=== PATIENT | male | born 1950 | race Hispanic/Latino ===

== ENCOUNTER 2019-07-12 06:00 | Day surgery (SDC) | payer OTHER ==
[2019-07-07 12:05] VITALS: BP 153/69
[2019-07-07 12:21] LABS: BASOPHILS % (AUTO) 1.3 % (0.0-5.0); EOSINOPHILS % (AUTO) 2.3 % (0.0-8.0); HEMATOCRIT 35.5 % (42-54); LYMPHOCYTES % (AUTO) 27.2 % (21.0-51.0); MEAN CORPUSCULAR HEMOGLOBIN 31.4 pg (27.0-33.0); MEAN CORPUSCULAR HGB CONC 32.1 g/dL (32.0-36.0); MEAN CORPUSCULAR VOLUME 97.8 fL (79-99); MONOCYTES % (AUTO) 6.1 % (3.0-13.0); NEUTROPHILS % (AUTO) 62.7 % (40.0-77.0); PLATELET COUNT (AUTO) 137 K/uL (130-400); RED BLOOD CELL COUNT(AUTO) 3.63 MIL/uL (4.50-6.20); RED CELL DISTRIBUTION WIDTH 14.1 % (11.0-15.5); WHITE BLOOD COUNT (AUTO) 6.9 K/uL (4.8-10.8)
[2019-07-07 12:35] LABS: CREATININE 5.1 mg/dL (0.5-1.5); POTASSIUM 4.4 mmol/L (3.5-5.1)
[2019-07-07 12:38] LABS: INR 0.92 (0.85-1.15); PARTIAL THROMBOPLASTIN TIME 24.5 SEC (26.3-35.5); PROTHROMBIN TIME 9.7 SEC (9.6-11.6)
--- NOTE | 2019-07-11 14:24 | NUR ---
LABS ABNORMAL LABS AND CHEST XRAY REPORTED TO Jaspal VOSS, NO FURTHER ORDERS GIVEN. OK TO PROCEED WITH PLANNED PROCEDURE
[~2019-07-12] VITALS: Ht 172.7 cm; Wt 99.9 kg
[2019-07-12] VITALS (12 sets, daily range): BP systolic 127–153; BP diastolic 42–77
[~2019-07-12 06:00] MED LIST: SODIUM CHLORIDE 0.9% 500ML 500 ML IV SCH
[2019-07-12] MEDS ORDERED: SODIUM CHLORIDE 0.9% 1000ML 1,000 ML IV ONE (06:13)
--- NOTE | 2019-07-12 06:15 | NUR ---
PATIENT ARRIVED TO DAY PATIENT ACCOMPANIED BY SPOUSE (YOVANA). PATIENT AAOX3, RESPIRATIONS UNLABORED, VITAL SIGNS STABLE. PATIENT DENIES ANY PAIN AT THIS TIME. PROCEDURE VERIFIED WITH PATIENT AND HOSPITAL ROUTINE EXPLAINED TO PATIENT/SPOUSE, BOTH VERBALIZED UNDERSTANDING.
[2019-07-12] MEDS ORDERED: ATOR10 PO (06:59)
[2019-07-12] MEDS ORDERED: INSU100V12 SQ (06:59)
[2019-07-12] MEDS ORDERED: VITAMIN D3 PO (06:59)
[2019-07-12] MEDS ORDERED: ROPI0.257 PO (06:59)
[2019-07-12] MEDS ORDERED: PANT40TA25 PO (06:59)
[2019-07-12] MEDS ORDERED: SEVE800T7 PO (06:59)
[2019-07-12] MEDS ORDERED: TORS20TA4 PO (06:59)
[2019-07-12] MEDS ORDERED: CYAN500T63 PO (06:59)
[2019-07-12] MEDS ORDERED: FOLI1TAB61 PO (06:59)
[2019-07-12] MEDS ORDERED: BIVALIRUDIN 250 MG/VIAL IV ONE (07:10)
[2019-07-12] MEDS ORDERED: NITROGLYCERIN 5 MG/ML 10 ML VIAL IV ONE (07:10)
[2019-07-12] MEDS ORDERED: IOHEXOL-350 50ML VIAL IV ONE (07:11)
[2019-07-12] MEDS ORDERED: MIDAZOLAM HCL 1 MG/ML 2ML VIAL ONE (07:11)
[2019-07-12] MEDS ORDERED: LIDOCAINE HCL 2% 20ML ONE (07:11)
[2019-07-12] MEDS ORDERED: FENTANYL CITRATE PF 50 MCG/1 ML 2ML VIAL ONE (07:11)
[2019-07-12] MEDS ORDERED: IOHEXOL 350 MG/ML 100ML INFUS..BTL IV ONE (07:11)
--- NOTE | 2019-07-12 07:30 | NUR ---
PATIENT TRANSFERRED TO NETWORK SUPPORT ANALYST VIA BED BY CARITO HOU AND CARITO ESPINOSA. PATIENT INSTRUCTED TO WAIT IN ROOM IN ORDER TO SPEAK WITH DR PARKER AFTER PROCEDURE IS COMPLETE.
[2019-07-12] MEDS ORDERED: GLUCAGON 1MG KIT 1 MG ML IM PRN (08:30)
[2019-07-12] MEDS ORDERED: DEXTROSE 50%-WATER 50 ML DISP.SYRIN IV PRN (08:30)
--- NOTE | 2019-07-12 08:45 | NUR ---
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 PATIENT AAOX3, RESPIRATIONS UNLABORED, VITAL SIGNS STABLE. DRESSING TO RIGHT GROIN IS DRY/INTACT, NO BLEEDING OR HEMATOMA NOTED. AREA IS SOFT AND NONTENDER. PATIENT AT BEDSIDE.
[2019-07-12] MEDS ORDERED: ASPIRIN 81MG TAB.CHEW PO SCH (09:00)
[2019-07-12] MEDS ORDERED: INSULIN HUMULIN R 100 UNIT/ML 3ML SQ SCH (11:30)
--- NOTE | 2019-07-12 14:40 | NUR ---
DISCHARGE INSTRUCTIONS PROVIDED TO PATIENT AND PATIENT'S SPOUSE. FOLLOW UP APPOINTMENT WITH PCP PROVIDED AND PRESCRIPTIONS PROVIDED WELL. ARCHIE TINSLEY RN IN ROOM WITH PATIENT PROVIDING PATIENT WITH INFORMATION ON SURGICAL PROCEDURE AND SCHEDULING PROCEDURE WITH DR TINSLEY.
== END 2019-07-12 15:00 | disposition home or self-care (01) ==
LOC: DAH 06:00
PROVIDERS: ATTEND Internal Medicine Cardiovascular Disease
DX: I25.10 Atherosclerotic heart disease of native coronary artery without angina pectoris (principal); I35.0 Nonrheumatic aortic (valve) stenosis; E11.51 Type 2 diabetes mellitus with diabetic peripheral angiopathy without gangrene; E11.21 Type 2 diabetes mellitus with diabetic nephropathy; I50.9 Heart failure, unspecified; I87.329 Chronic venous hypertension (idiopathic) with inflammation of unspecified lower extremity; E11.22 Type 2 diabetes mellitus with diabetic chronic kidney disease; I12.0 Hypertensive chronic kidney disease with stage 5 chronic kidney disease or end stage renal disease; N18.6 End stage renal disease; Z79.899 Other long term (current) drug therapy; Z99.2 Dependence on renal dialysis
CPT/HCPCS: 36415; 71045; 80048; 82948 ×2; 85025; 85610; 85730; 93005; 93458; A4215; A4216; A4222; A4223 ×3; A4606; A4663; C1760; C1894 ×2; J1644; J2250; J3010; J3490 ×2; J7030; Q9965; Q9967 ×2; 99156; 99157; J0583

== ENCOUNTER 2019-07-26 12:00 | Inpatient (IN) | payer OTHER ==
[~2019-07-26] VITALS: Ht 172.7 cm; Wt 102.1 kg
[2019-07-26 11:18] VITALS: BP 129/56
[2019-07-26 11:19] LABS: BASOPHILS % (AUTO) 0.8 % (0.0-5.0); EOSINOPHILS % (AUTO) 2.4 % (0.0-8.0); HEMATOCRIT 31.1 % (42-54); LYMPHOCYTES % (AUTO) 24.6 % (21.0-51.0); MEAN CORPUSCULAR HEMOGLOBIN 32.3 pg (27.0-33.0); MEAN CORPUSCULAR HGB CONC 32.2 g/dL (32.0-36.0); MEAN CORPUSCULAR VOLUME 100.3 fL (79-99); NEUTROPHILS % (AUTO) 64.1 % (40.0-77.0); PLATELET COUNT (AUTO) 156 K/uL (130-400); RED CELL DISTRIBUTION WIDTH 15.9 % (11.0-15.5); WHITE BLOOD COUNT (AUTO) 6.5 K/uL (4.8-10.8)
[2019-07-26 11:26] LABS: HEMOGLOBIN A1C 6.1 % (4.0-6.0)
[2019-07-26 11:33] LABS: ALBUMIN 3.5 g/dL (3.5-5.0); BILIRUBIN,TOTAL 0.3 mg/dL (0.2-1.0); CREATININE 5.6 mg/dL (0.5-1.5); POTASSIUM 4.6 mmol/L (3.5-5.1); TOTAL PROTEIN, SERUM 7.2 g/dL (6.0-8.3)
[~2019-07-26 12:00] MED LIST changes: +ASPI-555 PO; +ATOR10 PO; +CHOLECALCIFEROL PO; +FOLI1TAB61 PO; +INSU100V12 SQ; +LISI2.5T2 PO; +METO50TA18 PO; +PANT40TA25 PO; +ROPI0.257 PO; +SEVE800T7 PO; -SODIUM CHLORIDE 0.9% 500ML 500 ML IV SCH; +TORS20TA4 PO; +VITAMIN B12 PO
[2019-07-26 12:13] LABS: INR 0.94 (0.85-1.15); PROTHROMBIN TIME 9.9 SEC (9.6-11.6)
--- NOTE | 2019-07-26 15:32 | NUR ---
RE: ABNORMAL LABS REPORTED ABNORMAL LABS TO CARITO ALMANZA (BUN 42, CREAT 5.6, CA 8.0, HGB/HCT 10.0/31.1 AND PTT 24.0) PER CARITO ALMANZA OK TO PROCEED WITH SCHEDULED PROCEDURE. NO NEW ORDERS.
[2019-07-27] MEDS ORDERED: CEFUROXIME SODIUM 1.5 GM VIAL IVP ONE (08:00)
[2019-07-29] VITALS (37 sets, daily range): BP systolic 53–189; BP diastolic 30–72
[2019-07-29] MEDS ORDERED: AMINOCAPROIC ACID 15,000 MG in SODIUM CHLORIDE 0.9% 500ML 500 ML IV PRN (06:15)
[2019-07-29] MEDS ORDERED: NOREPINEPHRINE BITARTRATE 8 MG in DEXTROSE 5%-WATER 250 ML IV PRN (06:15)
[2019-07-29] MEDS ORDERED: EPINEPHRINE 10 MG in SODIUM CHLORIDE 0.9% 240 ML IV PRN (06:15)
[2019-07-29] MEDS ORDERED: PAPAVERINE HCL 30 MG/ML 2ML VIAL ONE (07:10)
--- NOTE | 2019-07-29 07:10 | NUR ---
POTENTIAL FOR INFECTION: SHAVED FROM CHIN TO BILATERAL FEET PER USMAN OSCAR, FOLLOWED BY WIPING WITH DINESH 2%: CHLORHEXIDINE GLUCONATE CLOTH PATIENTS PRE-OP SKIN PREP.
[2019-07-29] MEDS ORDERED: CEFUROXIME SODIUM 1.5 GM VIAL ONE ×2 (07:11→11:23)
[2019-07-29] MEDS ORDERED: SODIUM CHLORIDE 0.9% 1000ML 1,000 ML IV ONE (07:11)
[2019-07-29] MEDS ORDERED: NEOMY SULF/POLYMYXIN B SULFATE 1 ML AMPUL IR ONE (07:27)
[2019-07-29] MEDS ORDERED: NITROGLYCERIN 50 MG/D5% WATER 1 BOT ONE (07:31)
[2019-07-29] MEDS ORDERED: ESMOLOL HCL 10 MG/ML 10 ML VIAL ONE (07:56)
[2019-07-29] MEDS ORDERED: HEPARIN SODIUM 1000UNIT/ML 10ML VIAL ONE ×2 (07:56→11:38)
[2019-07-29] MEDS ORDERED: SODIUM BICARB 50MEQ 50ML VIAL ONE ×2 (07:56→16:44)
[2019-07-29] MEDS ORDERED: EPINEPHRINE 1 MG/ML AMPULE ONE (07:56)
[2019-07-29] MEDS ORDERED: PROTAMINE SULFATE 10 MG/ML 25ML VIAL IV ONE (07:56)
[2019-07-29] MEDS ORDERED: AMINOCAPROIC ACID 250 MG/ML 20 ML VIAL IV ONE (07:56)
[2019-07-29] MEDS ORDERED: NOREPINEPHRINE BITARTRATE 1 MG/1 ML ML IV ONE (07:56)
[2019-07-29] MEDS ORDERED: LIDOCAINE PF 2% 5ML ABBOJECT ONE (07:56)
[2019-07-29] MEDS ORDERED: ROCURONIUM 10MG/1ML SYR 10 MG/ML ML ONE (07:57)
[2019-07-29] MEDS ORDERED: PROPOFOL 10 MG/ML 20ML VIAL IV ONE (07:57)
[2019-07-29] MEDS ORDERED: FENTANYL CITRATE PF 50 MCG/1 ML 20ML VIAL IJ ONE (07:57)
[2019-07-29] MEDS ORDERED: MIDAZOLAM HCL 1 MG/ML 2ML VIAL ONE ×2 (07:57→08:02)
[2019-07-29] MEDS ORDERED: KETAMINE 50MG/ML SYRINGE 50 MG/ML DISP.SYRIN IV ONE (07:58)
[2019-07-29 08:37] LABS: ABG BASE EXCESS 0.7 mmol/L (-2.0-3.0); ABG HCO3 23.7 mmol/L (21.0-28.0); ABG OXYGEN SATURATION 99.1 % (95.0-99.0); ABG PCO2 32 mmHg (35-48)
[2019-07-29] MEDS ORDERED: AMIODARONE HCL 50 MG/ML 3 ML VIAL ONE (10:10)
[2019-07-29] MEDS ORDERED: SODIUM CHLORIDE 0.9% 500ML 500 ML IV SCH (10:10)
[2019-07-29] MEDS ORDERED: SODIUM CHLORIDE 0.9% 1000ML 1,000 ML IV SCH (10:15)
[2019-07-29] MEDS ORDERED: NITROGLYCERIN 50 MG/D5% WATER 250 BOT IV SCH (10:15)
[2019-07-29] MEDS ORDERED: ACETAMINOPHEN 325 MG TAB PO PRN (10:15)
[2019-07-29] MEDS ORDERED: ONDANSETRON HCL 4 MG/2 ML VIAL IV PRN (10:15)
[2019-07-29] MEDS ORDERED: ALBUMIN (HUMAN) 5% 250 ML IV PRN (10:15)
[2019-07-29] MEDS ORDERED: TRAMADOL HCL 50 MG TABLET PO PRN (10:15)
[2019-07-29] MEDS ORDERED: SODIUM CHLORIDE 0.9% 10 ML VIAL IVP PRN (10:15)
[2019-07-29] MEDS ORDERED: SODIUM CHLORIDE 0.9% 250 ML IV PRN (10:15)
[2019-07-29] MEDS ORDERED: ACETAMINOPHEN 650 MG SUPPOSITORY RC PRN (10:15)
[2019-07-29] MEDS ORDERED: POTASSIUM CHLORIDE 20MEQ/100ML 100 ML IV PRN (10:15)
[2019-07-29] MEDS ORDERED: NOREPINEPHRINE 4MG/NS 250ML 250 ML IV PRN (10:15)
[2019-07-29] MEDS ORDERED: PROPOFOL 1000 MG/100 ML 100 ML IV PRN (10:15)
[2019-07-29] MEDS ORDERED: MORPHINE SULFATE 4 MG/1ML SYG IV PRN (10:15)
[2019-07-29] MEDS ORDERED: POTASSIUM PHOS 15 mMOL+NS250ML 250 ML IV PRN (10:15)
[2019-07-29] MEDS ORDERED: AMINOCAPROIC ACID 15,000 MG in SODIUM CHLORIDE 0.9% 250 ML IV SCH (10:15)
[2019-07-29] MEDS ORDERED: MORPHINE SULFATE 2 MG/ML 1ML SYG IV PRN (10:15)
[2019-07-29] MEDS ORDERED: INSULIN REGULAR, HUMAN 3ML 100 UNIT in SODIUM CHLORIDE 0.9% 99 ML IV SCH ×2 (10:15)
[2019-07-29] MEDS ORDERED: EPINEPHRINE 10 MG in DEXTROSE 5%-WATER 250 ML IV PRN (10:15)
[2019-07-29 11:23] LABS: ABG BASE EXCESS -5.3 mmol/L (-2.0-3.0); ABG OXYGEN SATURATION 98.9 % (95.0-99.0); ABG PCO2 32 mmHg (35-48)
--- NOTE | 2019-07-29 11:54 | NUR ---
S/P CABG X3 RECEIVED INTO CVR 214 SEDATED/INTUBATED, NON-RESPONSIVE. R.T. HERE AND SECURED ET TUBE & CONNECTED TO VENT SIMV12/600/+5/60% PS 10. MID STERNAL INCISION WITH SURGICAL DRESSINGDRY & INTACT. CHEST TUBES X2 SECURE AND SET AT 20CM H20 SUCTION. OLMSTEAD CATHETER PATENT AND DRAINING SMALL AMOUNT OF YELLOW/CLEAR URINE. LEFT LEG WRAPPED WITH ELASTIC BANDAGE, DRY & INTACT. BEDSIDE MONITORING SINUS RHYTHM HR 70-80. LEVOPHED DRIP 5MCG/MIN, EPINEPHRINE DRIP 0.03MCG/KG/MIN, & AMIKAR DRIP 50ML/HR ALL INFUSING WELL VIA RT IJ CORDIS. OG TUBE SECURED AND PLACEMENT VERIFIED. WILL INITIATE VENTILATOR AND DRIP WEANING PER PROTOCOL.
[2019-07-29 12:15] LABS: ABG HCO3 24.7 mmol/L (21.0-28.0); ABG OXYGEN SATURATION 98.5 % (95.0-99.0); ABG PCO2 40 mmHg (35-48)
--- NOTE | 2019-07-29 12:30 | NUR ---
FAMILY VISIT SPOUSE AND IMMEDIATE FAMILY HERE TO VISIT. UPDATED REGARDING PT STATUS AND PLAN OF CARE. QUESTIONS ANSWERED IN DETAIL. CONTACT INFORMATION IN CHART.
[2019-07-29 12:39] LABS: HEMATOCRIT 24.3 % (42-54); MEAN CORPUSCULAR HEMOGLOBIN 32.4 pg (27.0-33.0); MEAN CORPUSCULAR HGB CONC 32.5 g/dL (32.0-36.0); MEAN CORPUSCULAR VOLUME 99.6 fL (79-99); PLATELET COUNT (AUTO) 116 K/uL (130-400); RED BLOOD CELL COUNT(AUTO) 2.44 MIL/uL (4.50-6.20); RED CELL DISTRIBUTION WIDTH 16.5 % (11.0-15.5); WHITE BLOOD COUNT (AUTO) 21.1 K/uL (4.8-10.8)
[2019-07-29] MEDS ORDERED: PHARMACY COMMUNICATION MISC SCH ×3 (12:45→18:45)
[2019-07-29 12:52] LABS: INR 1.16 (0.85-1.15); PARTIAL THROMBOPLASTIN TIME 24.5 SEC (26.3-35.5); PROTHROMBIN TIME 12.1 SEC (9.6-11.6)
[2019-07-29 12:55] LABS: CREATININE 5.8 mg/dL (0.5-1.5); MAGNESIUM 1.5 mg/dL (1.80-2.40); PHOSPHORUS 5.5 mg/dL (2.5-4.9); POTASSIUM 4.3 mmol/L (3.5-5.1)
[2019-07-29] MEDS: MAGNESIUM 2GM PREMIX 50ML 50 ML IV PRN ×2 (13:13→22:49)
[2019-07-29] MEDS: CALCIUM GLUCONATE 1 GM in SODIUM CHLORIDE 0.9% 50 ML IV PRN ×4 (13:13→21:59)
--- NOTE | 2019-07-29 13:30 | NUR ---
H&H 7.9/24.3 UNABLE TO WEAN LEVO & EPI. NOTIFIED DR TINSLEY. UPDATED REGARDING CURRENT STATUS INCLUDING V/S, DRIPS WITH RATES & DOSAGES. ORDER RECEIVED TO TRANSFUSE 1 UNIT PRBC AND CONSULT NEPHROLOGY. ORDERS CARRIED OUT.
--- NOTE | 2019-07-29 14:45 | NUR ---
DR LOBO HERE UPDATED. ORDERED HD FOR TODAY.
[2019-07-29] MEDS ORDERED: CEFAZOLIN SODIUM 1 GM VIAL IV SCH (15:15)
[2019-07-29 16:38] LABS: ABG BASE EXCESS -5.3 mmol/L (-2.0-3.0); ABG HCO3 20.7 mmol/L (21.0-28.0); ABG OXYGEN SATURATION 98.4 % (95.0-99.0); ABG PCO2 42 mmHg (35-48)
[2019-07-29 17:36] LABS: ABG HCO3 26.9 mmol/L (21.0-28.0); ABG OXYGEN SATURATION 97.3 % (95.0-99.0); ABG PCO2 43 mmHg (35-48)
--- NOTE | 2019-07-29 17:45 | NUR ---
EXTUBATED PER CVR WEANING PROTOCOL\\ REPORTED ABG'S TO DR SWENSON. RECEIVED ORDER TO EXTUBATE AND BIPAP PRN ORDERS RECEIVED. INSTRUCTED PT ON VOICE REST X2HR IN ORDER TO PREVENT LARYNGEAL EDEMA AND RESPIRATORY DISTRESS. NODDED HEAD "YES" IN UNDERSTANDING.
[2019-07-29] MEDS ORDERED: SODIUM BICARB 50MEQ 50ML VIAL IV SCH (18:30)
--- NOTE | 2019-07-29 19:00 | NUR ---
BP 70 HD IN PROGRESS, RECEIVING REPORT FROM ELINA ARZATE. SBP 70'S. LEVOPHED INCREASED, ALBUMIN GIVEN, SEE VITAL SIGNS.
[2019-07-29] MEDS ORDERED: ALBUMIN (HUMAN) 5% 250 ML IV ONE (19:08)
[2019-07-29 19:26] LABS: ABG BASE EXCESS 3.1 mmol/L (-2.0-3.0); ABG HCO3 28.8 mmol/L (21.0-28.0); ABG OXYGEN SATURATION 96.8 % (95.0-99.0); ABG PCO2 49 mmHg (35-48)
--- NOTE | 2019-07-29 20:00 | NUR ---
ASSESSMENT PT RESTING IN BED, HEMODIALYSIS IN PROGRESS. INSULIN, LEVOPHED AND EPI INFUSING, SEE VITAL SIGNS. PT AAOX3, PERRLA, FOLLOWS COMMANDS ANXIOUS BUT COOPERATIVE. MEDIASTINAL DRSG/CHEST TUBE/LEFT GROIN/LLE DRSGS C/D/I. SCD IN PLACE, NSR. O2 CHANGED TO 4L NC. BEDSIDE MONITOR REVIEWED AND ADJUSTED FOR PT PARAMETERS. ASSESSMENT COMPLETED, SEE FLOW SHEET.
--- NOTE | 2019-07-29 20:15 | NUR ---
HEMODIALYSIS HEMODIALYSIS COMPLETED, REMOVED 300 ML. SEE HD ASSESSMENT
[2019-07-29] MEDS: CEFAZOLIN SODIUM 1 GM VIAL IV SCH (20:36)
[2019-07-29 21:37] LABS: CREATININE 3.1 mg/dL (0.5-1.5); POTASSIUM 3.9 mmol/L (3.5-5.1)
[2019-07-29 21:38] LABS: MAGNESIUM 1.8 mg/dL (1.80-2.40)
[2019-07-29] MEDS: ATORVASTATIN CALCIUM 40 MG TABLET PO SCH (21:58)
--- NOTE | 2019-07-29 22:00 | NUR ---
O2 O2 DECREASED TO 3L NC
--- NOTE | 2019-07-29 23:00 | NUR ---
LEVOPHED LEVOPHED WEANED OFF, SEE VITAL SIGNS
--- NOTE | 2019-07-29 23:30 | NUR ---
ASSESSMENT PT RESTING IN BED, WITH EYES CLOSED, AROUSES EASILY, RESPONDS APPROPRIATELY. INSULIN AND EPI INFUSING, SEE VITAL SIGNS. MEDIASTINAL DRSG/CHEST TUBE/LEFT GROIN/LLE DRSGS C/D/I. SCD IN PLACE, NSR, O2 3L NC. ASSESSMENT COMPLETED, SEE FLOW SHEET. RN AT BEDSIDE.
[2019-07-30] VITALS (29 sets, daily range): BP systolic 91–139; BP diastolic 36–68
--- NOTE | 2019-07-30 03:15 | NUR ---
FAMILY YOVANA CALLED AND PT UP-DATE GIVEN. QUESTIONS ASKED AND ANSWERED.
[2019-07-30] MEDS: TRAMADOL HCL 50 MG TABLET PO PRN ×2 (03:27→11:12)
[2019-07-30] MEDS: CEFAZOLIN SODIUM 1 GM VIAL IV SCH ×2 (03:30→11:07)
--- NOTE | 2019-07-30 04:00 | NUR ---
ASSESSMENT PT RESTING IN BED, WITH EYES CLOSED, AROUSES EASILY, RESPONDS APPROPRIATELY. INSULIN INFUSING WITHOUT DIFFICULTY . MEDIASTINAL DRSG/CHEST TUBE/LEFT GROIN/LLE DRSGS C/D/I. DEB/SCD IN PLACE, NSR, O2 2L NC. ASSESSMENT COMPLETED, SEE FLOW SHEET. RN AT BEDSIDE.
--- NOTE | 2019-07-30 04:10 | NUR ---
SISTER SISTER UNIQUE IN AT BEDSIDE.
[2019-07-30 04:59] LABS: HEMATOCRIT 24.9 % (42-54); MEAN CORPUSCULAR HEMOGLOBIN 31.4 pg (27.0-33.0); MEAN CORPUSCULAR HGB CONC 32.1 g/dL (32.0-36.0); MEAN CORPUSCULAR VOLUME 97.6 fL (79-99); PLATELET COUNT (AUTO) 66 K/uL (130-400); RED BLOOD CELL COUNT(AUTO) 2.55 MIL/uL (4.50-6.20); RED CELL DISTRIBUTION WIDTH 18.9 % (11.0-15.5); WHITE BLOOD COUNT (AUTO) 9.2 K/uL (4.8-10.8)
--- NOTE | 2019-07-30 05:00 | NUR ---
CHAIR MORNING CARE COMPLETED, PT WEIGHED WITH STANDING SCALE AND PLACED IN CHAIR.
[2019-07-30 05:05] LABS: INR 1.02 (0.85-1.15); PROTHROMBIN TIME 10.7 SEC (9.6-11.6)
[2019-07-30 05:08] LABS: CREATININE 4.2 mg/dL (0.5-1.5); MAGNESIUM 2.4 mg/dL (1.80-2.40); PHOSPHORUS 5.3 mg/dL (2.5-4.9); POTASSIUM 4.8 mmol/L (3.5-5.1); URIC ACID 3.4 mg/dL (2.6-7.2)
[2019-07-30 05:31] LABS: PLATELET MORPHOLOGY COMMENT MARKED DECREASE
--- NOTE | 2019-07-30 07:00 | NUR ---
ASSESSMENT Aa&OX3. SITTING UP IN CARDIAC CHAIR. NO DISTRESS NOTED. UNLABORED RESPIRATIONS WITH O2 2L NC AND O2 SAT 97%. ENCOURAGED COUGH AND DEEP BREATHING & TO USE IS FOR 10 BREATHS Q1H WHILE AWAKE WHILE SUPPORTING CHEST WITH PILLOW IN ORDER TO PREVENT PNEUMONIA AND CHEST COMPLICATIONS. INSTRUCTED NOT TO USE ARMS TO PUSH OR PULL SELF TO PREVENT INCISION DEHISCENCE. VERBALIZED UNDERSTANDING. OFF ALL DRIPS. V/S MONITORED PER BEDSIDE MONITOR. CHEST TUBES & OLMSTEAD CATHETER SECURE & PATENT. FULL ASSESSMENT DOCUMENTED.
--- NOTE | 2019-07-30 07:13 | NUR ---
BEDSIDE REPORT BEDSIDE REPORT GIVEN TO ALVAREZ ARZATE
[2019-07-30] MEDS: ASPIRIN 325MG EC TAB 325 MG TABLET.DR PO SCH (08:15)
--- NOTE | 2019-07-30 10:55 | NUR ---
SPOUSE AND DAUGHTER HERE TO VISIT UPDATED REGARDING PATIENT STATUS. QUESTIONS ANSWERED IN DETAIL. PATIENT CALM, PLEASANT, & COOPERATIVE. DENIES PAIN AND DISCOMFORT AT THIS TIME. REQUESTING SOLID FOOD FOR LUNCH.
--- NOTE | 2019-07-30 11:48 | NUR ---
TRANSFERRED TO ICU ROOM 209 VIA CARDIAC CHAIR. AA&OX3. NO DISTRESS UPON TRANSFER. SETTLED IN ROOM. BEDSIDE MONITORING SR 77 NO ECTOPY. O2 2L NC. CHEST TUBES SECURE AND SET TO 20CM H20 SUCTION. OLMSTEAD CATHETER SECURE. CALL LIGHT IN HAND. INSTRUCTED TO CALL FOR ASSISTANCE.
--- NOTE | 2019-07-30 12:25 | NUR ---
Nutrition Intervention: Nutrition consult due to S/p CABG. Pt. on Renal Dialysis NCS Clear Liquid diet during RD visit. Pt. tolerated diet with fair p.o. intake. Diet has been advanced to 75gm CCD Renal Dialysis beginning with lunch meal. Labs reviewed(Alb 3.5, BG 128, HgbA1c 6.1%, BUN 26, Creat 4.2, GFR 15). Albumin goal for HD pt's is >/=4.0. Spoke with pt. regarding protein supplementation and pt. agreed to try. LBM: 07/29/2019. SR-14, midsternal incision. BMI: 34.4, Obesity Grade 1. Pt. reports has been on HD for 1 year and is familiar with Renal diet. Pt. educated on CABG Nutrition Therapy diet and provided with education material. Pt. verbalized understanding. Recommendations: 1) Rec. 30ml ProMod BID with B'fast and dinner meals. 2) CABG Nut. therapy diet education given to patient. 3) Continue to monitor pt's nutritional status. 4) Consult RD as nutrition concerns arise. Addendum: 07/30/19 at [address] Amended: Links added.
--- NOTE | 2019-07-30 14:45 | NUR ---
DR TINSLEY HERE TO SEE PATIENT UPDATED REGARDING STATUS. NO NEW ORDERS AT THIS TIME.
--- NOTE | 2019-07-30 15:17 | NUR ---
INITIAL: Met with pt this afternoon to discuss dcp. Pt mentions that he lives w his spouse. Prior to admission was using a cane for ambulation. He requires assist w ADLs. He has provider services 2hrs per day. He has a walker and wc avail if needed. Per pt he attends [facility]. per pt he feels safe and comfortable [place]. CM to continue to follow and wait for Md recommendations. Addendum: 07/30/19 at 1519 by KRISTINE TAMAYO CM Amended: Links added. Addendum: 07/30/19 at 1521 by KRISTINE TAMAYO Per pt he is also willing to consider short term rehab if needed.
--- NOTE | 2019-07-30 19:30 | NUR ---
ASSESSMENT PT SITTING IN BED WATCHING T.V. INSULIN INFUSING WITHOUT DIFFICULTY. CALLBELL REVIEWED AND WITHIN REACH. BEDSIDE MONITOR REVIEWED AND PARAMETERS ADJUSTED. ASSESSMENT COMPLETED, SEE FLOW SHEET.
[2019-07-30] MEDS: ATORVASTATIN CALCIUM 40 MG TABLET PO SCH (20:22)
[2019-07-31] VITALS (46 sets, daily range): BP systolic 87–147; BP diastolic 41–76
[2019-07-31 04:08] LABS: HEMATOCRIT 22.9 % (42-54); MEAN CORPUSCULAR HEMOGLOBIN 30.6 pg (27.0-33.0); MEAN CORPUSCULAR VOLUME 98.7 fL (79-99); PLATELET COUNT (AUTO) 47 K/uL (130-400); RED BLOOD CELL COUNT(AUTO) 2.32 MIL/uL (4.50-6.20); RED CELL DISTRIBUTION WIDTH 18.1 % (11.0-15.5); WHITE BLOOD COUNT (AUTO) 7.5 K/uL (4.8-10.8)
[2019-07-31 04:21] LABS: CREATININE 5.6 mg/dL (0.5-1.5); POTASSIUM 4.7 mmol/L (3.5-5.1)
[2019-07-31] MEDS: TRAMADOL HCL 50 MG TABLET PO PRN ×2 (07:39→20:16)
[2019-07-31] MEDS: ASPIRIN 325MG EC TAB 325 MG TABLET.DR PO SCH (08:03)
[2019-07-31] MEDS: METOPROLOL TARTRATE 25 MG TAB PO SCH ×2 (08:03→20:16)
[2019-07-31] MEDS ORDERED: DEXTROSE 50%-WATER 50 ML DISP.SYRIN IV PRN (10:00)
[2019-07-31] MEDS ORDERED: GLUCAGON 1MG KIT 1 MG ML IM PRN (10:00)
[2019-07-31] MEDS: INSULIN HUMULIN R 100 UNIT/ML 3ML SQ SCH ×3 (11:30→21:00)
[2019-07-31 16:19] LABS: HEMATOCRIT 26.4 % (42-54)
[2019-07-31] MEDS: ATORVASTATIN CALCIUM 40 MG TABLET PO SCH (20:16)
[2019-08-01] VITALS (43 sets, daily range): BP systolic 106–160; BP diastolic 41–68
[2019-08-01 04:28] LABS: HEMATOCRIT 24.7 % (42-54); MEAN CORPUSCULAR HEMOGLOBIN 31.6 pg (27.0-33.0); MEAN CORPUSCULAR HGB CONC 32.8 g/dL (32.0-36.0); MEAN CORPUSCULAR VOLUME 96.5 fL (79-99); PLATELET COUNT (AUTO) 51 K/uL (130-400); RED BLOOD CELL COUNT(AUTO) 2.56 MIL/uL (4.50-6.20); RED CELL DISTRIBUTION WIDTH 16.8 % (11.0-15.5); WHITE BLOOD COUNT (AUTO) 7.8 K/uL (4.8-10.8)
[2019-08-01 04:33] LABS: ALANINE AMINOTRANSFERASE < 6 U/L (12-78); ALBUMIN 2.2 g/dL (3.5-5.0); ASPARTATE AMINOTRANSFERASE 14 U/L (10-37); BILIRUBIN,TOTAL 0.4 mg/dL (0.2-1.0); CARBON DIOXIDE 29 mmol/L (21-32); CHLORIDE 98 mmol/L (101-111); CREATININE 6.7 mg/dL (0.5-1.5); GLOMERULAR FILTR. RATE CALC 9 mL/min (>60); GLUCOSE,RANDOM 160 mg/dL (70-105); PHOSPHORUS 6.4 mg/dL (2.5-4.9); POTASSIUM 4.9 mmol/L (3.5-5.1); SODIUM SERUM 136 mmol/L (136-145); TOTAL PROTEIN, SERUM 5.4 g/dL (6.0-8.3); UREA NITROGEN, BLOOD 55 mg/dL (7-18)
[2019-08-01 05:39] LABS: LYMPHOCYTES % (MANUAL) 16 % (22-44); MAN.DIFF COMMENT-IMPRESSION MANUAL DIFFERENTIAL; MONOCYTES % (MANUAL) 6 % (2-9); PLATELET MORPHOLOGY COMMENT DECREASED; SEGMENTED NEUTROPHILS % 78 % (40-70)
[2019-08-01] MEDS: INSULIN HUMULIN R 100 UNIT/ML 3ML SQ SCH ×4 (06:28→20:54)
[2019-08-01] MEDS: ENOXAPARIN SODIUM 30 MG/0.3 ML SQ SCH (07:57)
[2019-08-01] MEDS ORDERED: EPOETIN ALFA 10,000 UNIT/ML VIAL SQ SCH (09:45)
--- NOTE | 2019-08-01 10:15 | NUR ---
PATIENT RECEIVED IN BEDSIDE CHAIR AAOX3, NO ACUTE DISTRESS NOTED. POD #[address] ARORA IN TO EVALUATE PATIENT EARLY IN AM. NEW ORDERS RECEIVED TO BE CARRIED OUT. RIGHT RADIAL ARTERIAL LINE REMOVED PER [facility] PROTOCOL. PRESSURE APPLIED FOR 10 MINUTES. PATIENT TOLERATED WELL. DR. LOBO IN TO SEE PATIENT AT 0900. NEW ORDERS RECEIVED TO BE CARRIED OUT. PATIENT IS CURRENTLY RECEIVING DIALYSIS TREATMENT. WILL CONT TO MONITOR CLOSELY. PT IS PCCU STATUS.
--- NOTE | 2019-08-01 12:00 | NUR ---
OLMSTEAD CATHETER OUT. PATIENT COMPLETED 3 HOURS OF HEMODIALYSIS WELL. REFER TO FLOW SHEET.
[2019-08-01] MEDS: CALCIUM ACETATE 667 MG CAPSULE PO SCH ×2 (12:58→16:23)
[2019-08-01] MEDS: ASPIRIN 325MG EC TAB 325 MG TABLET.DR PO SCH (12:59)
--- NOTE | 2019-08-01 14:08 | NUR ---
DC PLAN VISITED WITH PATIENT AND FAMILY. PATIENT NOT AMBULATING MUCH ALSO GOES TO DIALYSIS. EXPLAINED THAT [facility] IRU AND STR NOT TO [facility]. SAID HE ALSO HAS MCR. GAVE THEM THE LIST OF CMS FOR SNF AND IRU. SAID THEY WANTED [facility]. TOLD NURSE THAT I NEED ORDER FOR REFERRAL. Addendum: 08/01/19 at 1413 by JERMAINE JOYNER RN CM Amended: Links added.
--- NOTE | 2019-08-01 15:53 | NUR ---
RIGHT IJ CORDIS REMOVED PER MD ORDERS AND [facility] POLICY. PT TOLERATED WELL, NO BLEEDING OR HEMATOMA NOTED. CATHETER INTACT. AREA COVERED WITH 4X4 AND SECURED WITH HYPAFIX TAPE.
--- NOTE | 2019-08-01 20:00 | NUR ---
PT TRANSFERRED FROM ICU. REPORT GIVEN BY CAMILO ARZATE. PT IS S/P CABG 3 DAYS. ABLE TO STAND UP. SURGICAL DRESSING IN PLACE AT CHEST INCISION. PT INSTRUCTED TO CONTINUE IS. CURRENTLY HITTING 500 VOLUME. GOAL IS 1000. STATES NO PAIN.
[2019-08-01] MEDS: ATORVASTATIN CALCIUM 40 MG TABLET PO SCH (20:17)
[2019-08-01] MEDS: METOPROLOL TARTRATE 25 MG TAB PO SCH (20:17)
[2019-08-02 04:21] LABS: HEMATOCRIT 25.1 % (42-54); MEAN CORPUSCULAR HEMOGLOBIN 31.7 pg (27.0-33.0); MEAN CORPUSCULAR HGB CONC 32.7 g/dL (32.0-36.0); MEAN CORPUSCULAR VOLUME 96.9 fL (79-99); PLATELET COUNT (AUTO) 72 K/uL (130-400); RED BLOOD CELL COUNT(AUTO) 2.59 MIL/uL (4.50-6.20); RED CELL DISTRIBUTION WIDTH 16.1 % (11.0-15.5); WHITE BLOOD COUNT (AUTO) 6.4 K/uL (4.8-10.8)
[2019-08-02 04:43] LABS: POTASSIUM 4.2 mmol/L (3.5-5.1)
[2019-08-02 04:45] VITALS: BP 125/61
[2019-08-02] MEDS: INSULIN HUMULIN R 100 UNIT/ML 3ML SQ SCH ×4 (06:31→21:00)
[2019-08-02] MEDS: CALCIUM ACETATE 667 MG CAPSULE PO SCH ×3 (07:31→16:22)
[2019-08-02] MEDS: ASPIRIN 325MG EC TAB 325 MG TABLET.DR PO SCH (07:31)
[2019-08-02] MEDS: METOPROLOL TARTRATE 25 MG TAB PO SCH ×3 (07:31→20:29)
[2019-08-02] MEDS: ENOXAPARIN SODIUM 30 MG/0.3 ML SQ SCH (07:32)
--- NOTE | 2019-08-02 08:00 | NUR ---
ASSESSMENT PT IS AAAOX3 DENIES CP DENIES SOB DENIES NV NO COMPLAINTS SITTING UP IN CARDIA CHAIR. TOLERATED MEAL AND MEDS. ENCOURAGED USE OF IS 10XS Q1HR WHILE AWAKE. DR BALLARD ROUNDED, PLAN [facility] 08-03-19
[2019-08-02 08:03] VITALS: BP 121/58
[2019-08-02 08:11] LABS: HEPATITIS Bs ANTIGEN SCREEN P Negative (Negative)
[2019-08-02] MEDS ORDERED: LISINOPRIL 10 MG TABLET PO SCH (09:00)
--- NOTE | 2019-08-02 09:00 | NUR ---
DR PARKER ROUNDED MED CHANGE ORDERS RECEIVED AND CARRIED OUT. WANTS PATIENT TO GO TO REHAB, JERMAINE IS AWARE. PATIENT AGREES TO IT.
--- NOTE | 2019-08-02 10:00 | NUR ---
DRESSINGS REMOVED INCISION SITES OPEN TO AIR, WELL APPROXIMATED NO DEHISCENCE NOTED. TOLERATED WELL.
[2019-08-02 11:46] VITALS: BP 115/54
--- NOTE | 2019-08-02 14:21 | NUR ---
DC PLAN VISITED WITH PATIENT. [facility] INFO SENT [facility] VISITED WITH PATIENT. PATIENT ACCEPTED AT 1400. PER CARDIOLOGY PLAN IS TO [facility]. WILL GO VIA AMBULANCE DUE TO OXYGEN AND RECENT SURGERY CLOSEST FACILITY WITH BED AVAILABLE. Addendum: 08/02/19 at 1423 by JERMAINE JOYNER RN CM Amended: Links added.
[2019-08-02 16:04] VITALS: BP 108/57
[2019-08-02] MEDS: TRAMADOL HCL 50 MG TABLET PO PRN (18:57)
--- NOTE | 2019-08-02 19:00 | NUR ---
PT STATED PAIN TO CHEST INCISION. TRAMADOL GIVEN PRN. PT INCREASING ACTIVITY LEVELS. NO DISTRESS NOTED.
[2019-08-02 19:31] VITALS: BP 131/64
[2019-08-02] MEDS: ATORVASTATIN CALCIUM 40 MG TABLET PO SCH (20:29)
[2019-08-02 23:43] VITALS: BP 127/68
[2019-08-03 04:12] LABS: HEMATOCRIT 24.6 % (42-54); MEAN CORPUSCULAR HEMOGLOBIN 30.8 pg (27.0-33.0); MEAN CORPUSCULAR HGB CONC 31.3 g/dL (32.0-36.0); MEAN CORPUSCULAR VOLUME 98.4 fL (79-99); PLATELET COUNT (AUTO) 98 K/uL (130-400); RED CELL DISTRIBUTION WIDTH 15.7 % (11.0-15.5); WHITE BLOOD COUNT (AUTO) 6.1 K/uL (4.8-10.8)
[2019-08-03 04:42] LABS: CREATININE 6.3 mg/dL (0.5-1.5); POTASSIUM 4.3 mmol/L (3.5-5.1)
[2019-08-03 06:12] VITALS: BP 140/81
[2019-08-03] MEDS: INSULIN HUMULIN R 100 UNIT/ML 3ML SQ SCH (06:23)
[2019-08-03 07:00] VITALS: BP 160/80
--- NOTE | 2019-08-03 08:00 | NUR ---
Patient assessed at this time, no distress noted, family at bedside. will continue to monitor.
[2019-08-03] MEDS: ENOXAPARIN SODIUM 30 MG/0.3 ML SQ SCH (09:00)
[2019-08-03] MEDS ORDERED: METOPROLOL TARTRATE 25 MG TAB PO SCH (09:00)
[2019-08-03] MEDS ORDERED: LISINOPRIL 10 MG TABLET PO SCH (09:00)
[2019-08-03] MEDS ORDERED: LISI10TA7 PO (10:11)
[2019-08-03] MEDS ORDERED: TRAM50TA4 PO (10:11)
[2019-08-03] MEDS ORDERED: ATOR40TA69 PO (10:11)
[2019-08-03] MEDS ORDERED: METO25 PO (10:11)
[2019-08-03] MEDS ORDERED: ASPI-891 PO (10:11)
[2019-08-03 11:00] VITALS: BP 134/70
[2019-08-03] MEDS: CALCIUM ACETATE 667 MG CAPSULE PO SCH ×2 (11:23→11:38)
[2019-08-03] MEDS: ASPIRIN 325MG EC TAB 325 MG TABLET.DR PO SCH (11:37)
--- NOTE | 2019-08-03 12:03 | NUR ---
RUFINA PLAN PATIENT ACCEPTED TO [facility] MOT AND EMS IN CHART. Addendum: 08/03/19 at 1204 by JERMAINE JOYNER RN CM Amended: Links added.
--- NOTE | 2019-08-03 15:40 | NUR ---
Patient discharged at this time to [facility]. Report given to Rehab nurse Bhavna. Discharge instruction given to patient. Patient states understanding. IV Discontinued at this time
[2019-08-03] MEDS ORDERED: EPOETIN ALFA 10,000 UNIT/ML VIAL SQ SCH (18:00)
== END 2019-08-03 14:30 | DRG 235 ==
LOC: EDSTATUS 12:00 → DAHIP 07-29 05:51 → 2CV 07-29 10:43 → 2BH 07-30 12:41 → 2AH 08-01 19:58
PROVIDERS: ADMIT Thoracic Surgery (Cardiothoracic Vascular Surgery); ATTEND Thoracic Surgery (Cardiothoracic Vascular Surgery)
PROC: 30233N1 Transfusion of Nonautologous Red Blood Cells into Peripheral Vein, Percutaneous Approach (ICD-10-PCS; 2019-07-29)
PROC: 5A1D70Z Performance of Urinary Filtration, Intermittent, Less than 6 Hours Per Day (ICD-10-PCS; 2019-07-29)
PROC: 02100Z9 Bypass Coronary Artery, One Artery from Left Internal Mammary, Open Approach (ICD-10-PCS; principal; 2019-07-29 08:00)
PROC: 021109W Bypass Coronary Artery, Two Arteries from Aorta with Autologous Venous Tissue, Open Approach (ICD-10-PCS; 2019-07-29 08:00)
PROC: 06BQ4ZZ Excision of Left Saphenous Vein, Percutaneous Endoscopic Approach (ICD-10-PCS; 2019-07-29 08:00)
PROC: 5A1D70Z Performance of Urinary Filtration, Intermittent, Less than 6 Hours Per Day (ICD-10-PCS; 2019-08-01)
PROC: 5A1D70Z Performance of Urinary Filtration, Intermittent, Less than 6 Hours Per Day (ICD-10-PCS; 2019-08-03)
DX: I25.10 Atherosclerotic heart disease of native coronary artery without angina pectoris (principal); N18.6 End stage renal disease; I12.0 Hypertensive chronic kidney disease with stage 5 chronic kidney disease or end stage renal disease; E11.22 Type 2 diabetes mellitus with diabetic chronic kidney disease; D64.9 Anemia, unspecified; I65.29 Occlusion and stenosis of unspecified carotid artery; I25.82 Chronic total occlusion of coronary artery; R06.89 Other abnormalities of breathing; E11.51 Type 2 diabetes mellitus with diabetic peripheral angiopathy without gangrene; E66.9 Obesity, unspecified; E78.00 Pure hypercholesterolemia, unspecified; E78.5 Hyperlipidemia, unspecified; I95.1 Orthostatic hypotension; Z79.4 Long term (current) use of insulin; Z79.899 Other long term (current) drug therapy; Z99.2 Dependence on renal dialysis; Z68.34 Body mass index [BMI] 34.0-34.9, adult; I25.2 Old myocardial infarction; Z87.891 Personal history of nicotine dependence; Z90.49 Acquired absence of other specified parts of digestive tract
CPT/HCPCS: 36415; 36430; 71045; 71046; 80048; 80053; 82330; 82435; 82803; 82947; 82948; 83036; 83605; 83735; 84100; 84132; 84295; 84550; 85014; 85018; 85025; 85027; 85347; 85610; 85730; 86704; 86706; 86850; 86900; 86901; 86922; 87340; 87520; 90935; 93005; 93880; 94002; 94010; 94150; 97039; A4357; A7048; G0378; J0171; J0282; J0610; J0690; J0697; J0885; J1644; J1650; J1815; J2001; J2250; J2405; J2440; J2704; J2720; J3010; J3475; J3490; J7030; J7040; J7060; P9016; P9045

== ENCOUNTER → 2019-09-06 | Outpatient (CLI) | payer OTHER ==
[~2019-09-06] MED LIST changes: -ASPI-555 PO; +ASPI-891 PO; -ATOR10 PO; +ATOR40TA69 PO; +LISI10TA7 PO; -LISI2.5T2 PO; +METO25 PO; -ROPI0.257 PO; -TORS20TA4 PO; +TRAM50TA4 PO
[2019-09-06 11:38] LABS: INR 0.93 (0.85-1.15); PARTIAL THROMBOPLASTIN TIME 27.6 SEC (26.3-35.5); PROTHROMBIN TIME 10.1 SEC (9.6-11.6)
--- NOTE | 2019-09-06 12:00 | NUR ---
US GUIDED LEFT THORACENTESIS ORDERED. NOT DONE. NO FLUID NOTED BY REVIEWED THE IMAGES AND CONFIRMED, NOT ENOUGH FLUID TO SAFELY PERFORM PROCEDURE. INFORMED PT/FAMILY OF RESULTS. PT DISCHARGED HOME AMBULATORY, STABLE, AAO X 3, NO C/O PAIN.
== END | disposition home or self-care (01) ==
LOC: RAH 10:27
PROVIDERS: ATTEND Internal Medicine Cardiovascular Disease
DX: J94.8 Other specified pleural conditions (principal); J81.0 Acute pulmonary edema
CPT/HCPCS: 36415; 76604; 85610; 85730